=== PATIENT | female | born 1995 | race Caucasian/White ===

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

== ENCOUNTER → 2017-01-17 | Outpatient (CLI) | payer OTHER ==
--- NOTE | 2017-01-17 15:36 | DIAGNOSTIC IMAGING REPORT ---
RIGHT WRIST MIN 3 VIEWS ROUTINE CLINICAL HISTORY: 21 years-old Female presenting with follow-up right base of the fifth metacarpal fracture. TECHNIQUE: Frontal, bilateral oblique, and lateral views of the right wrist were obtained. COMPARISON: 12/30/2016. FINDINGS: Interval fiberglass casting of the right wrist. This degrades evaluation for underlying osseous detail. The previously noted nondisplaced subacute fracture of the base of the fifth metacarpal is not appreciated. No gross malalignment. Radiocarpal and intercarpal articulations also preserved. Slight ulnar negative variance. IMPRESSION: Interval casting which degrades evaluation for underlying osseous detail. Nonvisualization of previous seen noted fifth metacarpal fracture. No malalignment. Electronically signed by: Sohan Dent M.D. 01/17/2017 3:34 PM Dictated Date/Time: 01/17/2017 3:31 PM
== END | disposition home or self-care (01) ==
LOC: C.RDSM 14:44
PROVIDERS: ATTEND Family Medicine
DX: S62.101A Fracture of unspecified carpal bone, right wrist, initial encounter for closed fracture (principal); X58.XXXA Exposure to other specified factors, initial encounter